=== PATIENT | female | born 1960 | race African-American/Black ===

== ENCOUNTER 2017-05-23 12:52 | Emergency (ER) | payer BC ==
[~2017-05-23] VITALS: Ht 165.1 cm; Wt 70.3 kg
--- NOTE | ~2017-05-23 | US85 ---
[facility] A Service [facility] RADIOLOGY TEXT RESULTS PATIENT: AISSATOU SILVER LOCATION: SED : 64 UNIT #: [id number] AGE: [address]: Alex Person MD SEX: F ORDER DR: [id number] [address] [address] [id number] MR#: [id number] Acc #: [id number] NAME: AISSATOU SILVER : 1960 SEX: F STUDY DATE/TIME: 05/23/2017 13:19 UNIT: SED ROOM: STUDY DESCRIPTION: LE Veins Unilat or Ltd Stdy Attending Physician: Alex Person M.D. Ordering Physician: Alex Person M.D. MEDICAL IMAGING REPORT This report is preliminary unless electronic signature is present. EXAM Left lower extremity venous ultrasound INDICATION Left lower extremity pain for 2 weeks. TECHNIQUE Venous ultrasound examination of the left lower extremity was performed using grayscale, spectral Doppler and color flow Doppler imaging. FINDINGS The examination is negative. There is no evidence of left lower extremity deep venous thrombus from the groin to the lower calf. Visualized greater saphenous vein is also patent. IMPRESSION Negative examination. No evidence of left lower extremity deep venous thrombosis. Dictated by... Josue Berg M.D. THIS IS AN ELECTRONICALLY VERIFIED REPORT Josue Berg M.D. at 05/24/2017 7:40 AM TATUM/james TD: 05/24/2017 01:59 JOB #: [id number] MEDICAL IMAGING REPORT [facility] A Service [facility] RADIOLOGY TEXT RESULTS PATIENT: AISSATOU SLIVER LOCATION: SED : 64 UNIT #: [id number] AGE: [address]: Alex Person MD SEX: F ORDER DR: Page 1 of 1
[~2017-05-23 12:52] MED LIST: NO MEDICATIONS; ROBAXIN500 MG PO; VOLTAREN75 MG PO
[2017-05-23 14:01] LABS: PROTHROMBIN TIME (PATIENT) 11.5 SECONDS (9.5-12.4)
[2017-05-23 14:05] LABS: BASOPHIL# 0.1 X10e3 (0-0.3); EOSINOPHIL# 0.1 X10e3 (0-0.7); EOSINOPHIL% 1.9 % (0.0-7.0); HEMATOCRIT 37.6 % (35.0-45.0); HEMOGLOBIN 12.8 gm/dL (12.0-16.0); LYMPHOCYTE# 3.2 X10e3 (1.0-3.5); LYMPHOCYTE% 41.3 % (17.0-45.0); MEAN CELL VOLUME 96.1 FL (83-96); MEAN CORPUSCULAR HEMOGLOBIN 32.8 PG (28-34); MEAN CORPUSCULAR HGB CONC 34.1 g/dL (30-36); MEAN PLATELET VOLUME 10.2 FL (6.5-11.5); MONOCYTE# 0.5 X10e3 (0-1.0); NEUTROPHIL# 3.9 X10e3 (1.5-7.1); NEUTROPHIL% 49.8 % (40-75); PLATELET COUNT 236 X10e3 (140-420); RED BLOOD COUNT 3.91 X10e (3.90-5.30); RED CELL DISTRIBUTION WIDTH 12.4 % (11.0-15.5); WHITE BLOOD COUNT 7.8 X10e3 (4.0-10.5)
[2017-05-23 14:16] LABS: DIFF IND NO
== END 2017-05-23 14:41 | disposition home or self-care (01) ==
LOC: SED 12:52
PROVIDERS: Emergency Medicine
DX: M25.562 Pain in left knee (principal); F17.200 Nicotine dependence, unspecified, uncomplicated
CPT/HCPCS: 29530; 85025; 85610; 93971; 99284